=== PATIENT | male | born 1975 | race Caucasian/White ===

== ENCOUNTER 2021-10-18 12:11 | Emergency (ER) | payer OTHER ==
[2021-10-18 12:26] VITALS: BP 139/79
[2021-10-18] MEDS ORDERED: ONDANSETRON ODT 4 MG TABLET TL STA (12:39)
[2021-10-18] MEDS ORDERED: predniSONE 20 MG TABLET PO STA (12:39)
--- NOTE | 2021-10-18 12:40 | ED Physician Documentation ---
History of Present Illness - Stated complaint Stated Complaint: VOMITING, EAR PX, DIZZY - Chief complaint Chief Complaint: Heent - History obtained from History obtained from: Patient - History of Present Illness Timing: How many days ago (3) Pain level max: 0 Pain level now: 0 - Additonal information Additional information: 46-year-old male presents to the emergency department complaint of bilateral tinnitus. He states there is ringing in both of his ears. 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 He states he has had mild rhinorrhea and congestion. No coughing. No known Covid exposures. No sore throat. He states he felt like the room was spinning earlier and had nausea with one episode of emesis. Review of Systems Constitutional: denies: Fever, Chills Respiratory: denies: Cough GI: denies: Abdominal Pain, Diarrhea, Hematemesis, Bloody / black stool Musculoskeletal: denies: Neck pain, Back pain Neurologic: denies: Headache PD PAST MEDICAL HISTORY - Past Medical History Past Medical History: Yes Cardiovascular: None Respiratory: None Neuro: None Endocrine/Autoimmune: None GI: GERD : None HEENT: None Psych: None Musculoskeletal: None Derm: Herpes zoster - Past Surgical History Past Surgical History: No - Present Medications Home Medications: Ambulatory Orders Medication Instructions Recorded Confirmed Meclizine HCl [Motion Sickness] 25 mg PO Q6H PRN #30 tablet 10/18/21 Ondansetron Odt [Zofran] 4 mg TL Q6H PRN #10 tablet 10/18/21 predniSONE [Deltasone] 10 mg PO [id number] #42 tab 10/18/21 - Allergies Allergies/Adverse Reactions: Allergies Allergy/AdvReac Type Severity Reaction Status Date / Time No Known Drug Allergies Allergy Verified 10/18/21 12:26 - Social History Does the pt smoke?: No Smoking Status: Never smoker Does the pt drink ETOH?: No Does the pt have substance abuse?: No - Immunizations Immunizations are current?: Yes - POLST Patient has POLST: No PD ED PE NORMAL - Vitals Vital signs reviewed: Yes - General General: Alert and oriented X 3, No acute distress, Well developed/nourished - HEENT HEENT: PERRL, Ears normal, Moist mucous membranes, Pharynx benign, Other (no nystagmus) - Neck Neck: Supple, no meningeal sign, No JVD, No bruit - Cardiac Cardiac: RRR, Strong equal pulses - Respiratory Respiratory: No respiratory distress, Clear bilaterally - Abdomen Abdomen: Soft, Non tender, Non distended - Back Back: No spinal TTP - Derm Derm: Warm and dry, No rash - Extremities Extremities: No edema - Neuro Neuro: Alert and oriented X 3, sterile processing manager 2-12 intact, No motor deficit, No sensory deficit, Other (Normal cerebellar test. Normal gait) Eye Opening: Spontaneous Motor: Obeys Commands Verbal: Oriented GCS Score: 15 - Psych Psych: Normal mood, Normal affect Results - Vitals Vitals: Vital Signs - 24 hr 10/18/21 12:23 Temperature 36.9 C Heart Rate 81 Respiratory 15 Rate Blood Pressure 139/79 H O2 Saturation 99 Oxygen O2 Source Room air PD MEDICAL DECISION MAKING - ED course Complexity details: considered differential, d/w patient ED course: 46-year-old male with bilateral tinnitus. Symptoms otherwise seem consistent with vertigo, will treat for this. Unclear if this tinnitus is related to an infectious source such as COVID-19 or potentially an environmental source as he does work in a loud shop without ear protection much of the time. We will have him follow-up closely with ENT for further evaluation. Patient counseled regarding signs and symptoms for which I believe and urgent re-evaluation would be necessary. Patient with good understanding of and agreement to plan and is comfortable going home at this time This document was made in part using voice recognition software. While efforts are made to proofread this document, sound alike and grammatical errors may occur. Departure - Departure Disposition: 01 Home, Self Care Clinical Impression: Vertigo Tinnitus Qualifiers: Laterality: bilateral Qualified Code(s): H93.13 - Tinnitus, bilateral Condition: Good Instructions: Tinnitus, ED Dizziness [facility] Follow-Up: [facility] [Provider Group] [facility] [Provider Group] Prescriptions: predniSONE [Deltasone] 10 mg PO [id number] #42 tab Meclizine HCl [Motion Sickness] 25 mg PO Q6H PRN #30 tablet PRN Reason: Dizziness Ondansetron Odt [Zofran] 4 mg TL Q6H PRN #10 tablet PRN Reason: Nausea / Vomiting Comments: Prescriptions were sent to [facility] in [place]. Please call the ear nose and throat doctor on Tuesday for an appointment. You should be wearing hearing protection at work as well. Return if you worsen. Do not drive or operate heavy machinery while taking the meclizine. you may return to work when your covid test is negative. You have a Covid test pending. You need to self quarantine until the result is done and negative. The results should be done in 24-48 hours. We will call with a positive result, the fastest way to get a negative result for confirmation though is to go to the hospital website at [email or web address], click on the my [facility] tab and sign up for the patient portal. If any of your friends and/or family need to be tested, they can call the hospital at [phone] for an appointment to have their Covid test. Forms: Activity restrictions Discharge Date/Time: 10/18/21 12:57
== END 2021-10-18 12:57 | disposition home or self-care (01) ==
LOC: ED 12:11
DX: R42 Dizziness and giddiness (principal); H93.13 Tinnitus, bilateral; Z20.822 Contact with and (suspected) exposure to COVID-19
CPT/HCPCS: 87635; 99283; 99284; J7512; Q0162

== ENCOUNTER 2022-06-03 18:52 | Emergency (ER) | payer OTHER ==
--- NOTE | 2022-06-03 19:26 | ED Physician Documentation ---
PD HPI CHEST PAIN - Stated complaint Stated Complaint: LEFT SIDE PX - Chief complaint Chief Complaint: Abd Pain PD PAST MEDICAL HISTORY - Past Medical History Cardiovascular: None Respiratory: None Neuro: None Endocrine/Autoimmune: None GI: GERD : None HEENT: None Psych: None Musculoskeletal: None Derm: Herpes zoster - Past Surgical History Past Surgical History: No - Present Medications Home Medications: Ambulatory Orders Medication Instructions Recorded Confirmed Meclizine HCl [Motion Sickness] 25 mg PO Q6H PRN #30 tablet 10/18/21 Ondansetron Odt [Zofran] 4 mg TL Q6H PRN #10 tablet 10/18/21 predniSONE [Deltasone] 10 mg PO [id number] #42 tab 10/18/21 - Allergies Allergies/Adverse Reactions: Allergies Allergy/AdvReac Type Severity Reaction Status Date / Time No Known Drug Allergies Allergy Verified 06/03/22 19:07 - Social History Does the pt smoke?: No Smoking Status: Never smoker Does the pt drink ETOH?: No Does the pt have substance abuse?: No - Immunizations Immunizations are current?: Yes - POLST Patient has POLST: No Results - Vitals Vitals: Vital Signs - 24 hr 06/03/22 19:03 Temperature 36.7 C Heart Rate 88 Respiratory 14 Rate Blood Pressure 149/107 H O2 Saturation 100 Oxygen O2 Source Room air
--- NOTE | 2022-06-03 19:27 | ED Physician Documentation ---
PD HPI ABD PAIN - Stated complaint Stated Complaint: LEFT SIDE PX - Chief complaint Chief Complaint: Abd Pain - History obtained from History obtained from: Patient - History of Present Illness Timing - onset: How many hours ago (1) Timing - duration: Hours (1) Timing - details: Abrupt onset Pain level max: 10 Pain level now: 1 Quality: Pain Location: LLQ Radiation: Left flank Improved by: Other (no ameliorating factors) Worsened by: Other (no exacerbating factors) Associated symptoms: No: Fever, Nausea, Vomiting, Diarrhea, Constipation, Testicular pain Similar symptoms before: Has not had sx before Recently seen: Not recently seen - Additional information Additional information: c/o sudden onset left flank pain while at 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 Pain is waxing and waning without apparent exacerbating or ameliorating factors, and by the time of this H+P, he is nearly pain-free. Denies h/o similar pain. Review of Systems Constitutional: denies: Fever Cardiac: reports: Reviewed and negative Respiratory: reports: Reviewed and negative GI: reports: Abdominal Pain. denies: Nausea, Vomiting, Constipation, Diarrhea : denies: Dysuria, Frequency Musculoskeletal: reports: Back pain PD PAST MEDICAL HISTORY - Past Medical History Cardiovascular: None Respiratory: None Neuro: None Endocrine/Autoimmune: None GI: GERD : None HEENT: None Psych: None Musculoskeletal: None Derm: Herpes zoster - Past Surgical History Past Surgical History: No - Present Medications Home Medications: Ambulatory Orders Medication Instructions Recorded Confirmed Meclizine HCl [Motion Sickness] 25 mg PO Q6H PRN #30 tablet 10/18/21 Ondansetron Odt [Zofran] 4 mg TL Q6H PRN #10 tablet 10/18/21 predniSONE [Deltasone] 10 mg PO [id number] #42 tab 10/18/21 - Allergies Allergies/Adverse Reactions: Allergies Allergy/AdvReac Type Severity Reaction Status Date / Time No Known Drug Allergies Allergy Verified 06/03/22 19:07 - Social History Does the pt smoke?: No Smoking Status: Never smoker Does the pt drink ETOH?: No Does the pt have substance abuse?: No - Immunizations Immunizations are current?: Yes - POLST Patient has POLST: No PD ED PE NORMAL - Vitals Vital signs reviewed: Yes - General General: Alert and oriented X 3, No acute distress, Well developed/nourished - Cardiac Cardiac: RRR, No murmur - Respiratory Respiratory: No respiratory distress, Clear bilaterally - Abdomen Abdomen: Normal bowel sounds, Soft, Non tender, Non distended - Back Back: No CVA TTP - Derm Derm: No rash Results - Vitals Vitals: Oxygen O2 Source Room air - Labs Labs: Laboratory Tests 06/03/22 06/03/22 06/03/22 19:29 19:29 20:56 WBC 11.2 H RBC 5.09 Hgb 15.6 Hct 46.1 MCV 90.6 MCH 30.6 MCHC 33.8 RDW 12.0 Plt Count 220 MPV 10.8 Neut # (Auto) 7.9 H Lymph # (Auto) 2.3 [place] # (Auto) 0.9 Eos # (Auto) 0.0 Baso # (Auto) 0.0 Absolute Nucleated RBC 0.00 Nucleated RBC % 0.0 Sodium 138 Potassium 4.2 Chloride 101 Carbon Dioxide 26 Anion Gap 11.0 BUN 22 H Creatinine 1.3 H Estimated GFR (MDRD) 59 L Glucose 120 H Calcium 11.1 H Total Bilirubin 0.5 AST 56 H ALT 77 H Alkaline Phosphatase 118 Total Protein 7.5 Albumin 4.3 Globulin 3.2 Albumin/Globulin Ratio 1.3 Lipase 33 Urine Color DARK YELLOW Urine Clarity CLEAR Urine pH 7.5 Ur Specific [place] 1.020 Urine Protein TRACE Urine Glucose (UA) NEGATIVE Urine Ketones NEGATIVE Urine Occult Blood LARGE H Urine Nitrite NEGATIVE Urine Bilirubin NEGATIVE Urine Urobilinogen 0.2 (NORMAL) Ur Leukocyte Esterase NEGATIVE Urine RBC TNTC H Urine WBC 0-3 Ur Squamous Epith Cells RARE Squamous Urine Bacteria Rare Ur Microscopic Review INDICATED Urine Culture Comments NOT INDICATED - Rads (name of study) CT A/P Radiology: Prelim report reviewed, See rad report PD MEDICAL DECISION MAKING - ED course Complexity details: reviewed results, re-evaluated patient, considered differential, d/w patient ED course: presents with left flank pain that has resolved immediately prior to this evaluation; he describes severe pain that was still present while being triaged but rapidly improved spontaneously, no h/o similar sx. Large blood/rbc on UA and CT consistent with recently passed calculus which is in bladder at the time of the CT. He is given toradol early in stay and had no recurrence of symptoms during ED stay. Results d/w patient, return precautions discussed. Departure - Departure Disposition: 01 Home, Self Care Clinical Impression: Renal colic on left side Condition: Good Instructions: ED Stone Renal W Colic Comments: The CT scan shows that you passed a kidney stone. You should not have any more episodes of pain, although you might have a dull, mild aching for the next several hours. The CT did not show any other kidney stones. Try to stay hydrated to prevent other stones from forming. Discharge Date/Time: 06/03/22 22:40
[2022-06-03 19:33] LABS: BASOPHILS % (AUTO) 0.2 %; EOSINOPHILS % (AUTO) 0.4 %; HCT - HEMATOCRIT 46.1 % (42.0-52.0); HGB - HEMOGLOBIN 15.6 g/dL (14.0-18.0); LYMPHOCYTES # (AUTO) 2.3 10^3/uL (1.5-3.5); LYMPHOCYTES % (AUTO) 20.7 %; MEAN CORPUSCULAR HEMOGLOBIN 30.6 pg (27.0-31.0); MEAN CORPUSCULAR HGB CONC 33.8 g/dL (32.0-36.0); MEAN CORPUSCULAR VOLUME 90.6 fL (80.0-94.0); MEAN PLATELET VOLUME 10.8 fL (7.4-11.4); MONOCYTES # (AUTO) 0.9 10^3/uL (0.0-1.0); MONOCYTES % (AUTO) 7.8 %; NEUTROPHILS # (AUTO) 7.9 10^3/uL (1.5-6.6); NEUTROPHILS % (AUTO) 70.5 %; PLT - PLATELET COUNT 220 10^3/uL (130-450); RED BLOOD COUNT 5.09 10^6/uL (4.70-6.10); WHITE BLOOD COUNT 11.2 x10^3/uL (4.8-10.8)
[2022-06-03] MEDS ORDERED: KETOROLAC 60 MG/2 ML VIAL IM STA (19:42)
[2022-06-03 19:45] LABS: ALBUMIN 4.3 g/dL (3.2-5.5); ALBUMIN/GLOBULIN RATIO 1.3 (1.0-2.2); BILIRUBIN,TOTAL 0.5 mg/dL (0.2-1.0); CALCIUM 11.1 mg/dL (8.5-10.3); CREATININE 1.3 mg/dL (0.6-1.2); POTASSIUM 4.2 mmol/L (3.5-5.0); TOTAL PROTEIN 7.5 g/dL (6.7-8.2)
[2022-06-03 21:03] LABS: BILIRUBIN,URINE NEGATIVE (NEGATIVE); GLUCOSE, URINE (UA) NEGATIVE (NEGATIVE); KETONES,URINE (UA) NEGATIVE (NEGATIVE); LEUKOCYTE ESTERASE, URINE NEGATIVE (NEGATIVE); NITRITE,URINE NEGATIVE (NEGATIVE); OCCULT BLOOD,URINE LARGE (NEGATIVE); PH,URINE 7.5 PH (5.0-7.5); PROTEIN,URINE TRACE mg/dL (NEGATIVE); UROBILINOGEN,URINE 0.2 (NORMAL) E.U./dL (NORMAL)
[2022-06-03 21:10] LABS: CLARITY,URINE CLEAR (CLEAR)
[2022-06-03 21:14] LABS: BACTERIA,URINE Rare /HPF (None Seen); RBC,URINE TNTC /HPF (0-5); SQUAMOUS EPITHELIAL CELL,UR RARE Squamous (<= Few); WBC,URINE 0-3 /HPF (0-3)
--- NOTE | 2022-06-03 22:08 | CT Report ---
PROCEDURE: Abdomen/Pelvis WO INDICATIONS: left flank pain TECHNIQUE: Noncontrast 5 mm thick sections acquired from the diaphragms to the symphysis. 5 mm coronal and sagi ttal reformats were then performed. For radiation dose reduction, the following was used: automated exposure control, adjustment of mA and/or kV according to patient size. COMPARISON: None. FINDINGS: Image quality: Excellent. ABDOMEN: Lung bases: Lung bases are clear. Heart size is normal. Solid organs: Minimally asymmetric prominence of the left renal collecting system compared to the ri ght. There are no intrarenal calcifications on either side. No perinephric inflammation. There is no hydroureter.. Liver and spleen are normal in size. Gallbladder is decompressed. No calcifications. Pancreas is no rmal in contours. No adrenal nodules. Kidneys are normal in size, without hydronephrosis or nephrol ithiasis. Peritoneum and bowel: Unenhanced bowel loops demonstrate normal wall thickness and caliber. Normal appendix. No free fluid or air. Nodes and vessels: No retroperitoneal or mesenteric adenopathy by size criteria. Aorta and inferior vena cava are normal in caliber. Miscellaneous: No ventral hernias. PELVIS: Genitourinary: Dependently within the urinary bladder line along the posterior wall at the midline, there is a punctate calcification, likely recently passed stone. Urinary bladder wall is normal thick ness. Prostate gland is normal size. Miscellaneous: No inguinal hernias or adenopathy. Bones: No suspicious bony lesions. Chronic appearing mild anterior compression fracture of T11. Disc degeneration at L3-4. IMPRESSION: 1. Punctate calcification within the urinary bladder consistent with a recently passed calculus. 2. There is trace residual left hydronephrosis. 3. No other urinary calcifications seen. Reviewed by: Patsy Kern MD on 06/03/2022 10:06 PM PDT Approved by: Patsy Kern MD on 06/03/2022 10:06 PM PDT Station ID: [id number]
[2022-06-03 22:40] VITALS: BP 133/76
== END 2022-06-03 22:40 | disposition home or self-care (01) ==
LOC: ED 18:52
DX: N23 Unspecified renal colic (principal)
CPT/HCPCS: 36415; 80053; 81001; 81003; 83690; 85025; 87086; 96372; 99282; 99284

== ENCOUNTER 2022-07-30 23:46 | Emergency (ER) | payer MEDICAID, OTHER ==
--- NOTE | 2022-07-31 00:24 | ED Physician Documentation ---
PD HPI HEENT - Stated complaint Stated Complaint: SWOLLEN FACE - Chief complaint Chief Complaint: Wound - History obtained from History obtained from: Patient - History of Present Illness Timing - onset: How many weeks ago (3) Timing - duration: Weeks (3) Timing - details: Gradual onset, Still present (worse the past 3-4 days.), Waxing and waning Location: Other (left cheek sores with purulent drainage/weeping, gradually expanding. Initially seemed like "ingrown hair" with pustules.) Improves: Other (he has cleaned it with soap and water and used OTC bacitracin without improvement. Gradual worsening.) Worsens: Other (palpation) Associated symptoms: Swollen nodes (left submandibular area the past several days.). No: Fever, Congestion Similar symptoms before: Has not had sx before Recently seen: Not recently seen Review of Systems Constitutional: denies: Fever, Chills Nose: denies: Rhinorrhea / runny nose, Congestion Throat: denies: Sore throat Respiratory: denies: Cough Skin: reports: Rash, Lesions (left cheek only) Neurologic: denies: Focal weakness, Numbness, Altered mental status, Headache PD PAST MEDICAL HISTORY - Past Medical History Cardiovascular: None Respiratory: None Neuro: None Endocrine/Autoimmune: None GI: GERD : None HEENT: None Psych: None Musculoskeletal: None Derm: Herpes zoster - Past Surgical History Past Surgical History: No - Present Medications Home Medications: Ambulatory Orders Medication Instructions Recorded Confirmed Chlorhexidine Gluconate [Hibiclens] 15 ml TP DAILY #236 ml 07/31/22 Doxycycline Hyclate 100 mg PO BID 7 Days #14 cap 07/31/22 Ibuprofen [Motrin] 600 mg PO TID PRN #25 tab 07/31/22 Mupirocin 2% Oint [Bactroban 2% 1 applic TOP TID #15 gm 07/31/22 Oint] - Allergies Allergies/Adverse Reactions: Allergies Allergy/AdvReac Type Severity Reaction Status Date / Time No Known Drug Allergies Allergy Verified 07/31/22 00:02 - Social History Does the pt smoke?: No Smoking Status: Never smoker Does the pt drink ETOH?: No Does the pt have substance abuse?: No - Immunizations Immunizations are current?: Yes - POLST Patient has POLST: No PD ED PE NORMAL - Vitals Vital signs reviewed: Yes - General General: Alert and oriented X 3, No acute distress, Well developed/nourished - Neck Neck: Other (left submandibular adenopathy, tender. nonfluctuant. Left cheek with skin sores/pustules that are confluent in patch. Does not extend to ear area. No dental tenderness. Not tender via inner cheek at parotid. Soft tissue swelling of cheek without fluctuance. ) - Cardiac Cardiac: RRR, No murmur - Respiratory Respiratory: Clear bilaterally Results - Vitals Vitals: Vital Signs - 24 hr 07/30/22 07/31/22 23:58 01:03 Temperature 37.3 C Heart Rate 89 84 Respiratory 16 16 Rate Blood Pressure 142/89 H 140/80 H O2 Saturation 98 99 Oxygen O2 Source Room air PD MEDICAL DECISION MAKING - ED course Complexity details: considered differential Departure - Departure Disposition: 01 Home, Self Care Clinical Impression: Impetigo, Facial infection Condition: Stable Record reviewed to determine appropriate education?: Yes Instructions: ED Staph Infec Abx Tx Only Prescriptions: Mupirocin 2% Oint [Bactroban 2% Oint] 1 applic TOP TID #15 gm Doxycycline Hyclate 100 mg PO BID 7 Days #14 cap Chlorhexidine Gluconate [Hibiclens] 15 ml TP DAILY #236 ml Ibuprofen [Motrin] 600 mg PO TID PRN #25 tab PRN Reason: Pain Comments: This looks like a skin infection most likely from a bacteria called staph aureus. We will target our antibiotics and ointment particularly for that. Doxycycline antibiotic twice daily for a week. Cleanse the area with soap and water 2-3 times daily and apply a light layer of mupirocin antibiotic ointment as well. Daily use the chlorhexidine/Hibiclens body wash certainly in the upper body and around the face and neck and shoulders but you can use it the whole body as well in the shower to reduce the amount of germs on the surface so less likely to find new nearby sites. Ibuprofen 3 times daily with food for the next several days to week for pain and inflammation. To that add Tylenol every 4-6 hours if needed for pain. I transmitted your prescriptions to [facility] pharmacy in [place]. Recheck if not improving well over the next 2 to 3 days and resolved by 4 to 5 days. Discharge Date/Time: 07/31/22 01:09
[2022-07-31] MEDS ORDERED: MUPIROCIN 2% OINT 1 GM TOP STA (00:46)
[2022-07-31] MEDS ORDERED: IBUPROFEN 600 MG TABLET PO STA (00:46)
[2022-07-31] MEDS ORDERED: ACETAMINOPHEN 325 MG TABLET PO STA (00:46)
[2022-07-31] MEDS ORDERED: DOXYCYCLINE 100 MG TABLET PO STA (00:46)
[2022-07-31 01:08] VITALS: BP 140/80
== END 2022-07-31 01:09 | disposition home or self-care (01) ==
LOC: ED 23:46
DX: L01.00 Impetigo, unspecified (principal); B96.89 Other specified bacterial agents as the cause of diseases classified elsewhere
CPT/HCPCS: 99282; 99284; A9270

== ENCOUNTER 2022-08-07 23:40 | Emergency (ER) | payer MEDICAID ==
[2022-08-08 00:04] VITALS: BP 140/83
[2022-08-08] MEDS ORDERED: SULFAMETH/TRIMETH DS 800/160 MG TABLET PO STA (00:50)
[2022-08-08] MEDS ORDERED: cephALEXin 250 MG CAPSULE PO STA (00:51)
--- NOTE | 2022-08-08 00:53 | ED Physician Documentation ---
History of Present Illness - Stated complaint Stated Complaint: FACIAL WOUND DRAINAGE - Chief complaint Chief Complaint: Heent - History obtained from History obtained from: Patient - Additonal information Additional information: Patient is a 47-year-old male presenting for evaluation of infection to left face that has been worsening. The patient has had sores to the left cheek with purulent drainage over the last few weeks. He was seen on July 30 in the emergency department and started on mupirocin, doxycycline and Hibiclens. He has been using these medications without improvement. He reports feeling increased swelling to the area. He has not had any drainage in the last few days. He denies fever, chest pain, difficulty breathing, trouble opening his mouth. Review of Systems Constitutional: denies: Fever Nose: denies: Congestion Throat: denies: Sore throat Cardiac: denies: Chest pain / pressure Respiratory: denies: Dyspnea GI: denies: Abdominal Pain : denies: Dysuria Skin: reports: Rash Neurologic: denies: Headache PD PAST MEDICAL HISTORY - Past Medical History Cardiovascular: None Respiratory: None Neuro: None Endocrine/Autoimmune: None GI: GERD : None HEENT: None Psych: None Musculoskeletal: None Derm: Herpes zoster - Past Surgical History Past Surgical History: No - Present Medications Home Medications: Ambulatory Orders Medication Instructions Recorded Confirmed Chlorhexidine Gluconate [Hibiclens] 15 ml TP DAILY #236 ml 07/31/22 Doxycycline Hyclate 100 mg PO BID 7 Days #14 cap 07/31/22 Ibuprofen [Motrin] 600 mg PO TID PRN #25 tab 07/31/22 Mupirocin 2% Oint [Bactroban 2% 1 applic TOP TID #15 gm 07/31/22 Oint] Sulfamethox/Trimeth 800/160 1 each PO BID #14 tablet 08/08/22 [Bactrim Ds 800/160] cephALEXin [Keflex] 500 mg PO Q6H #28 cap 08/08/22 - Allergies Allergies/Adverse Reactions: Allergies Allergy/AdvReac Type Severity Reaction Status Date / Time No Known Drug Allergies Allergy Verified 07/31/22 00:02 - Social History Does the pt smoke?: No Smoking Status: Never smoker Does the pt drink ETOH?: No Does the pt have substance abuse?: No - Immunizations Immunizations are current?: Yes - POLST Patient has POLST: No PD ED PE NORMAL - General General: Alert and oriented X 3, No acute distress, Well developed/nourished - HEENT HEENT: Moist mucous membranes, Pharynx benign (No trismus, no oral swelling) - Neck Neck: Supple, no meningeal sign - Cardiac Cardiac: RRR, Strong equal pulses, Other (L cheek : multiple superficial skin sores, swelling and erythema to cheek , worse toward angle of jaw - area feels firm, no bogginess/fluctuance; no dental pain or oral swelling) - Respiratory Respiratory: No respiratory distress - Derm Derm: Warm and dry - Neuro Neuro: Normal speech Results - Vitals Vitals: Vital Signs - 24 hr 08/08/22 00:01 Temperature 37.7 C Heart Rate 99 Respiratory 18 Rate Blood Pressure 140/83 H O2 Saturation 100 Oxygen O2 Source Room air PD MEDICAL DECISION MAKING - ED course ED course: Patient with infection to left cheek area of face.No signs of airway compromise. Has stable vital signs.Has had no improvement with doxycycline and mupirocin.Patient reports having increased swelling and tenderness to the area. There is an area that felt more firm near the angle of his jaw. There is no fluctuance on exam so I did place an ultrasound over this area to see if there was a collection amenable to drainage which I did not see. So at this time I have recommended patient use warm compresses several times a day to see if this will bring the infection to ahead at which time it may drain on its own or would be more amenable for I&D. I have also started him on Bactrim and Keflex. I have encouraged close follow-up in the next 24 to 48 hours. I have encouraged him to come back to the ER or to follow-up with [facility]. I have also instructed that he can return at any time if his symptoms Are worsening. Departure - Departure Disposition: 01 Home, Self Care Clinical Impression: Facial cellulitis Condition: Stable Instructions: ED Infec Skin Cellulitis Follow-Up: Raza Hyl[facility] DDS [Provider Admit Priv/Credential] - Prescriptions: Sulfamethox/Trimeth 800/160 [Bactrim Ds 800/160] 1 each PO BID #14 tablet cephALEXin [Keflex] 500 mg PO Q6H #28 cap Comments: You have an infection to your skin. There is an area of swelling but it does not look ready yet for drainage (After looking at it with an ultrasound). I would recommend using warm compresses 4-5 times a day to this site to see if it will help the area drain on its own. Please return to the emergency department of follow up with the oral/Maxillofacial surgeon if you do not notice any improvement within 24 to 48 hours. You can return to the emergency department sooner than that at any time if you have any worsening symptoms.I have sent prescriptions for new antibiotics to [facility] in [place]. Discharge Date/Time: 08/08/22 00:58
== END 2022-08-08 00:58 | disposition home or self-care (01) ==
LOC: ED 23:40
DX: L03.211 Cellulitis of face (principal)
CPT/HCPCS: 99282; A9270